=== PATIENT | male | born 1955 | race Caucasian/White ===

== ENCOUNTER 2024-09-24 07:44 | Emergency (ER) | payer BC, SELFPAY ==
[2024-09-24 07:47] VITALS: BP 115/67
--- NOTE | 2024-09-24 09:56 | ED.GENMED ---
History of Present Illness
General
Chief Complaint: Fall
Source: patient
Exam Limitations: none
Time Seen by Provider: 09/24/24 08:14
Nursing documentation reviewed up to this point in time: agreed with
History of Present Illness
History of Present Illness:
65-year-old male presenting to the emergency department today with concerns of a trip and fall last night while exiting an [employer] hitting his face on the cement to break his fall mainly with his hands but his hands otherwise without
significant discomfort good range of motion strength. Patient does have a laceration of the right upper lip zigzag pattern surrounded by abrasion additional injury no neck pain no loss of consciousness not on blood thinners.
Review of Systems
Review of Systems
Allergies reviewed?: Yes
All Other Systems: ROS reviewed and negative except as documented in HPI and ROS
Phy Exam
Physical Exam
Physical Exam:
GENERAL: Alert , in no apparent distress
EYE: pupils equal and reactive
NECK: Supple, no significant adenopathy.
ENT: Zigzag pattern laceration to the right side of the upper lip not through and through subcutaneous in depth no foreign body seen 3 cm in length o/p clr, mmm.
CARDIAC: Regular rate and rhythm .
LUNGS: Clear breath sounds bilaterally, no acute respiratory distress, no wheezes/rales/rhonchi
ABDOMEN: Soft, without focal tenderness, no r/g, no cvat
NEUROLOGICAL: Alert and oriented, no focal neuro deficits
SKIN: Warm and dry, skin intact.
MUSCULOSKELETAL: No edema, well perfused.
PSYCH: Normal and appropriate interaction.
Course
Vital Signs
Initial and Last Documented VS:
Initial Vital Signs
Temp Pulse Resp BP Pulse Ox
98.5 F 75 16 115/67 98
09/24/24 07:47 09/24/24 07:47 09/24/24 07:47 09/24/24 07:47 09/24/24 07:47
Last Documented Vital Signs
Temp Pulse Resp BP Pulse Ox
98.5 F 75 16 115/67 98
09/24/24 07:47 09/24/24 07:47 09/24/24 07:47 09/24/24 07:47 09/24/24 07:47
Procedures
Laceration Closure
Left Superior Lip:
Status of Wound: clean
Size of Wound in cm: 3
Description of Wound Edges: ragged and surrounded by abrasion
Preparation: cleaned with saline
Anesthesia: 1% Lidocaine
Revision/Debridement: minor revision and irrigate-direct pressure
Wound exploration: explored to base- no FB and no tendon involvement
Type of Closure: single layer closure
Skin Closure Material: 6-0 nylon
Number of sutures: 4
MDM/Problems Addressed
MDM/Problems Addressed:
61-year-old male presenting to the emergency department today after trip and fall last night after leaving [place]. Broke his fall mainly with his hands no evidence of significant fracture to the extremities. Then scraped his face.
Patient did sustain a laceration to his upper lip is cleaned thoroughly and closed with 4 stitches. These will need removal in 7 days. Did have a slight injury to his tooth but there is no movement of the teeth on examination. No evidence of jaw
fracture able to break a tongue depressor with clenched jaw. No neck pain patient is not on blood thinners. Very low risk for intracranial bleed. Risk and benefit of CT scan at this point was discussed with the patient. He elected to not get a
CT scan at this point as brain bleed very unlikely. Additionally fracture very unlikely of the face. Otherwise patient stable for outpatient management return precautions given.
*Critical Care Note
Total Time (30-74mins, 75-104mins- exclusive of procedures): Not Applicable
ED Attending Note
-
Portions of this chart may have been created with voice recognition software.� Occasional wrong word or��sound alike� substitutions may have occurred due to the inherent limitations of voice recognition software.
Discharge Plan
Departure
Patient Disposition: Home (Routine Discharge)
Date of Disposition: 09/24/24
Time of Disposition: 09:59
Patient with high blood pressure during this ER visit?: No
Condition: Good
Covid-19: Not Applicable
Discharge Problem:
Laceration of lip, Abrasion of face, Abrasion hand
Instructions: Preventing falls in adults, Skin Abrasions (DC)
Referrals:
NONE,* [Family Provider] -
Shadi German, DO [Active] - Follow up in 1 week
Activity Restrictions/Additional Instructions:
You came to the emergency department today after a fall. You are found of a laceration to her upper lip. This was closed with 4 stitches. Please have this removed in 7 days. Return for any worsening, new or concerning symptoms.
Interventions
Interventions:
*Risk Screen - Suicide Last Done: 09/24/24 07:47
*Neglect/Abuse Screening Last Done: 09/24/24 07:47
Discharge Date and Time
Print Language: GEORGIAN
== END 2024-09-24 10:09 | disposition home or self-care (01) ==
LOC: EMR 07:44
PROVIDERS: EMERGENCY PHYSICIAN Student in an Organized Health Care Education/Training Program
DX: S01.511A Laceration without foreign body of lip, initial encounter (principal); W01.0XXA Fall on same level from slipping, tripping and stumbling without subsequent striking against object, initial encounter
CPT/HCPCS: 12013; 99282